=== PATIENT | female | born 1985 | race Caucasian/White ===

== ENCOUNTER 2018-05-30 20:44 | Emergency (ER) | payer MEDICAID, SELFPAY ==
[2018-05-30 20:44] VITALS: BP 125/78; PULSE 97; RESP 15; TEMP 36.6; BMI 31.1
--- NOTE | 2018-05-30 21:06 | ED.VISSUMM ---
- ER Visit Summary Date of Service: 05/30/18 Chief Complaint: [Abscess to right shoulder and swollen lymph nodes to the neck] History of Present Illness: The patient is a 32 F [presents to the emergency department complaint of a swelling to her right shoulder that she thought was just a pimple and she started to squeeze it 3 days ago. Yesterday patient had a swollen lymph node in the right side of her neck and now she has multiple. She denies any fevers. Patient presents stating she thinks she just needs an antibiotic. Patient has no medical history.] Physical Examination: [HEENT-PERRLA, EOMI. Cranial nerves II through XII grossly intact. TMs clear. Mucous membranes moist. Patient has multiple swollen lymph nodes right anterior cervical. Cardiovascular-regular rate and rhythm without murmur or ectopy Lungs-clear to auscultation, chest wall stable without crepitus or subcu emphysema Abdomen-normoactive bowel sounds, soft, nontender, no rebound or rigidity, no peritoneal signs. Back exam-over the area of the right trapezius patient has a soft tissue swelling that is got an excoriated center and small amount of purulent debris noted from it. Minimal surrounding erythema noted. Areas somewhat indurated. Extremities-intact ?4, normal range of motion, normal pulses, atraumatic] Test Results: [I recommended incision and drainage of the suspected abscess which patient agreed. Gave her the option of anesthetic versus a stab incision and she would prefer to forego with the anesthetic. Wound was cleansed with alcohol and using an 11 blade a 1 cm incision was made into the central portion of the suspected abscess and small amount of purulent debris was expressed with a small amount of blood.] Emergency Department Course and Treatment: [Patient was given a dose of clindamycin in the emergency department given that she is allergic to penicillin and sulfa sports.] Treatment Plan: [Patient will start on clindamycin and advised to follow-up with primary care physician for wound check within next 3-5 days.] Disposition: [Discharged home in stable condition] Impression: [Right shoulder abscess with incision and drainage Anterior cervical lymphadenopathy] This note was generated with Admitlyation software. It may contain incorrect words, spelling, and punctuation that were not noted in review of the chart prior to signing ED Disposition - Plan for ED Patient: Referrals: Mauricio Norman MD [Primary Care Provider] -
--- NOTE | 2018-05-30 21:09 | ED.DCSUM_ITS ---
- ER Visit Summary Date of Service: 05/30/18 Chief Complaint: [Abscess to right shoulder and swollen lymph nodes to the neck] History of Present Illness: The patient is a 32 F [presents to the emergency department complaint of a swelling to her right shoulder that she thought was just a pimple and she started to squeeze it 3 days ago. Yesterday patient had a swollen lymph node in the right side of her neck and now she has multiple. She denies any fevers. Patient presents stating she thinks she just needs an antibiotic. Patient has no medical history.] Physical Examination: [HEENT-PERRLA, EOMI. Cranial nerves II through XII grossly intact. TMs clear. Mucous membranes moist. Patient has multiple swollen lymph nodes right anterior cervical. Cardiovascular-regular rate and rhythm without murmur or ectopy Lungs-clear to auscultation, chest wall stable without crepitus or subcu emphysema Abdomen-normoactive bowel sounds, soft, nontender, no rebound or rigidity, no peritoneal signs. Back exam-over the area of the right trapezius patient has a soft tissue swelling that is got an excoriated center and small amount of purulent debris noted from it. Minimal surrounding erythema noted. Areas somewhat indurated. Extremities-intact ?4, normal range of motion, normal pulses, atraumatic] Test Results: [I recommended incision and drainage of the suspected abscess which patient agreed. Gave her the option of anesthetic versus a stab incision and she would prefer to forego with the anesthetic. Wound was cleansed with alcohol and using an 11 blade a 1 cm incision was made into the central portion of the suspected abscess and small amount of purulent debris was expressed with a small amount of blood.] Emergency Department Course and Treatment: [Patient was given a dose of clindamycin in the emergency department given that she is allergic to penicillin and sulfa sports.] Treatment Plan: [Patient will start on clindamycin and advised to follow-up with primary care physician for wound check within next 3-5 days.] Disposition: [Discharged home in stable condition] Impression: [Right shoulder abscess with incision and drainage Anterior cervical lymphadenopathy] This note was generated with SavvySyncation software. It may contain incorrect words, spelling, and punctuation that were not noted in review of the chart [place] or to signing ED Disposition - Plan for ED Patient: Referrals: Mauricio Norman MD [Primary Care Provider] -
--- NOTE | 2018-05-30 21:09 | ED.DEP ---
ED Disposition - Plan for ED Patient: Instructions: ED Abscess IandD, ED Cervical Adenitis Abx Tx Prescriptions: Clindamycin HCl [Cleocin] 300 mg PO Q6H #40 cap Referrals: Mauricio Norman MD [Primary Care Provider] - 3-5 Days
[2018-05-30] MEDS: Clindamycin HCl 150 MG Capsule 300 MG PO (21:28)
[2018-05-30 21:34] VITALS: BP 120/93; PULSE 102; RESP 16; O2SAT 100
== END 2018-05-30 21:35 | disposition home or self-care (01) ==
PROVIDERS: Emergency Provider Emergency Medicine; Family Provider Family Medicine; PCP Family Medicine
DX: L02.413 Cutaneous abscess of right upper limb (principal); R59.1 Generalized enlarged lymph nodes; Z88.0 Allergy status to penicillin; Z88.2 Allergy status to sulfonamides
CPT/HCPCS: 10060; 99282

== ENCOUNTER 2019-02-23 23:06 | Emergency (ER) | payer MEDICAID, SELFPAY ==
[2019-02-23 23:06] VITALS: BP 143/94; PULSE 66; RESP 18; TEMP 36.6; O2SAT 99; BMI 32.1
--- NOTE | 2019-02-23 23:19 | ED.VIS.GEN ---
History of Present Illness Chief Complaint: Eye Problem Informant: Patient Onset: Today Narrative: Sudden redness itching burning sensation right eye which couple hours prior to arrival. History of similar in the past. Denies any seasonal allergies. No symptoms to left eye. No visual changes or pain. Prior similar symptoms: Yes Past Medical History - Allergies and Home Meds Allergies/Adverse Reactions: Allergies amoxicillin trihydrate [From Augmentin] Allergy (Verified 02/23/19 23:11) Hives cefixime [From Suprax] Allergy (Verified 02/23/19 23:11) Hives potassium clavulanate [From Augmentin] Allergy (Verified 02/23/19 23:11) Hives Primary Care Physician: Mauricio Norman MD [Primary Care Provider] - Surgical History: noncontributory Smoking Status: Never smoker Review of Systems General: Denies: Chills, Fever, Sweats Eyes: Denies: Visual changes - left, Visual changes - right, Visual changes - bilaterally, Blurred vision - left, Blurred vision - right, Blurred Vision - bilaterally, Diplopia ENT: Denies: Rhinorrhea, Sore throat Cardiovascular: Denies: Chest pain, Palpitations Respiratory: Denies: Dyspnea, Cough, Dyspnea on exertion Gastrointestinal: Denies: Abdominal pain, Nausea, Vomiting, Diarrhea, Melena, Hematochezia Genitourinary: Denies: Dysuria, Hematuria, Frequency Musculoskeletal: Denies: Back pain, Extremity Pain Skin: Denies: Rash, Wounds Neurological: Denies: Headache, Weakness, Numbness Physical Exam Vital Signs/Narrative: Vital Signs Temp Pulse Resp BP Pulse Ox 02/23/19 23:06 98 F 66 18 143/94 H 99 Inital Vital Signs reviewed: Yes General: Well nourished, Well developed, No Acute Distress Head: Normocephalic, Atraumatic Eyes: Perrl, EOMI, - - Right eye: Mild erythema sclera chemosis laterally. No drainage or crusting. ENT: Moist mucous membranes, No rhinorrhea Neck: Supple, Nontender Cardiovascular: Regular rate, Regular rhythm, No murmurs Respiratory: No distress, CTA bilaterally, Chest nontender Abdomen: Soft, Nontender, Nondistended, Normal bowel sounds Back: Nontender, Normal Inspection Extremities: Nontender, No edema Skin: Normal color, No rash Neurological: Alert, Oriented x3, Cranial nerves II-XII grossly intact, Normal Strength, Normal Sensation Psychological: Normal affect, Normal Mood Diagnostic/Tx/Re-eval - Medical Decision Making Nontoxic, vital signs stable. Patient with conjunctivitis with chemosis. Will write for Patanol drops along with Polytrim drops to use twice a day. No visual disturbances. Follow-up as an outpatient. ED Disposition - Plan for ED Patient: Disposition: Home or Assisted Living Diagnosis: Conjunctivitis, Chemosis of right conjunctiva Instructions: CONJUNCTIVITIS, Non-Specific Prescriptions: Olopatadine HCl [Patanol] 1 drop RIGHT EYE BID #1 bottle Polymyxin B Sulf/Trimethoprim [Polytrim Eye Drops] 1 drop RIGHT EYE BID #1 bottle Referrals: Mauricio Norman MD [Primary Care Provider] - 5-7 Days
== END 2019-02-23 23:42 | disposition home or self-care (01) ==
PROVIDERS: Emergency Provider Emergency Medicine; Family Provider Family Medicine; PCP Family Medicine
DX: H10.9 Unspecified conjunctivitis (principal); H11.421 Conjunctival edema, right eye; Z79.899 Other long term (current) drug therapy; Z88.1 Allergy status to other antibiotic agents; Z88.0 Allergy status to penicillin
CPT/HCPCS: 99282

== ENCOUNTER 2019-03-30 00:47 | Emergency (ER) | payer MEDICAID, SELFPAY ==
[2019-03-30 00:49] VITALS: BP 113/87; PULSE 77; RESP 18; TEMP 36.5; O2SAT 98; BMI 32.1
--- NOTE | 2019-03-30 01:30 | ED.VISSUMM ---
- ER Visit Summary Date of Service: 03/30/19 Chief Complaint: Dental pain History of Present Illness: The patient is a 33 F who presents with right lower dental pain that began yesterday. Patient states the pain was sharp yesterday but is now dull. Patient states the pain is over the right lower jaw. Patient denies any fevers. Patient admits to some swelling of her jaw and face. Patient denies any hot or cold sensitivities. Patient states she has an appoint with her dentist next week. Physical Examination: Vital signs are stable. Patient is afebrile. Patient is in no acute distress. Oral mucosa is pink and moist. Oropharynx is clear. There is a dental carry noted on the right lower second premolar (#29). There is tenderness to percussion over this tooth. There is some mild gingival edema. There is no fluctuance or abscess formation. There is no sublingual edema. There is no erythema. Airway is patent. Neck is supple. Trachea is midline. There is no JVD. Heart was regular rate and rhythm. Lungs are clear and equal bilaterally. Emergency Department Course and Treatment: Patient is allergic to amoxicillin so the patient was given a prescription for clindamycin. Patient was given her first dose here. Patient was instructed to take Tylenol or ibuprofen as needed for pain. Patient was instructed to follow-up with her dentist and primary care physician as scheduled. Patient understood and was agreeable with the plan. All questions were answered. Disposition: Discharge home Impression: Infected dental caries This note was generated with Superhuman dictation software. It may contain incorrect words, spelling, and punctuation that were not noted in review of the chart prior to signing ED Disposition - Plan for ED Patient: Disposition: Home or Assisted Living Diagnosis: Infected dental caries Instructions: Dental Cavity Prescriptions: Clindamycin HCl [Cleocin] 300 mg PO Q6H #40 cap Prescription Printed Referrals: Mauricio Norman MD [Primary Care Provider] - Keep Marie appointment Dentist,Your [STAFF PHYSICIAN] - Keep Marie appointment
[2019-03-30] MEDS: Clindamycin HCl 150 MG Capsule 300 MG PO (01:41)
== END 2019-03-30 01:43 | disposition home or self-care (01) ==
PROVIDERS: Emergency Provider Emergency Medicine; Family Provider Family Medicine; PCP Family Medicine
DX: K04.7 Periapical abscess without sinus (principal); K02.9 Dental caries, unspecified; F90.9 Attention-deficit hyperactivity disorder, unspecified type; Z79.899 Other long term (current) drug therapy
CPT/HCPCS: 99283

== ENCOUNTER 2022-02-26 09:19 | Emergency (ER) | payer MEDICAID, SELFPAY ==
[2022-02-26 09:20] VITALS: BP 131/98; PULSE 93; RESP 18; TEMP 36.6; O2SAT 100; BMI 36.8
[2022-02-26 09:22] VITALS: BP 131/98; PULSE 93; RESP 18; TEMP 36.6; O2SAT 100
[2022-02-26 10:22] VITALS: BP 131/98; PULSE 93; RESP 18; TEMP 36.6; O2SAT 100
--- NOTE | 2022-02-26 10:38 | EDS_ITS ---
HPI History of Present Illness Chief Complaint: Dental Narrative Narrative: 36-year-old female who denies significant past medical history presents with left upper jaw pain and facial swelling since yesterday. She relates history that she began having a tooth ache in the left upper jaw last Friday, approximately 7 days ago. Yesterday she went to urgent care and was placed on amoxicillin. She woke up this morning and noticed that her left upper jaw and face was swollen. She denies any difficulty swallowing or breathing. No fevers or chills. No redness to her face. She has an appointment with her dentist on Friday. She presents to the emergency department because of the pain and swelling of her left upper jaw. PFSH PFSH Medical History no medical history Home Medications dextroamphetamine-amphetamine 30 mg tablet 1 tab PO BID 02/23/19 [History Last Taken Unknown] clindamycin HCl 300 mg capsule 300 mg PO Q6H #40 caps 03/30/19 [Rx Last Taken Unknown] multivitamin 1 ea PO DAILY 03/30/19 [History Last Taken Unknown] amoxicillin 875 mg tablet 875 mg PO BID 02/26/22 [History Last Taken Unknown] clindamycin HCl 300 mg capsule (Cleocin HCl) 300 mg PO Q6H #40 caps 02/26/22 [Rx Last Taken Unknown] ibuprofen 800 mg tablet 800 mg PO TID PRN pain #20 tabs 02/26/22 [Rx Last Taken Unknown] Allergy/AdvReac Type Severity Reaction Status Date / Time amoxicillin trihydrate Allergy Hives Verified 02/26/22 09:22 [From Augmentin] cefixime [From Suprax] Allergy Hives Verified 02/26/22 09:22 potassium clavulanate Allergy Hives Verified 02/26/22 09:22 [From Augmentin] Social History Smoking Status: Never smoker ROS ROS ED ROS Narrative Constitutional: No fever, no chills. HEENT: No sore throat. No neck pain. No loss of vision. No rhinorrhea. Left upper jaw pain with dental pain. Positive left facial swelling. No difficulty swallowing. Cardiovascular: No chest pain. No palpitations. No pedal edema. Respiratory: No cough, no shortness of breath. No difficulty breathing. Abdominal: No abdominal pain. No nausea. No vomiting. Genitourinary: No dysuria. No hematuria. Musculoskeletal: No myalgias. No arthralgias. Neurologic: No headaches. No dizziness. No lightheadedness. Skin: No rash. No change in color. Psychiatric: No depression. No anxiety. EXAM Physical Exam Narrative Exam Narrative: Afebrile. Vital signs noted. HEENT: Normocephalic. Atraumatic. PERRL, EOMI. Neck soft and supple. No point tenderness or step off. Mild swelling of left mandibular area, no erythema. No fluctuance of the gums. Noted dental carry in left upper jaw, mainly second molar. No drooling or trismus. No Refugio angina. Airway patent. Cardiovascular: Regular rate and rhythm. No murmurs, rubs, or gallops appreciated. Respiratory: No tachypnea. Lungs clear to auscultation bilaterally. Gastrointestinal: Abdomen soft, nontender, with normoactive bowel sounds. No rebound or guarding. Neurological: Awake. Alert. Nonfocal, nonlateralizing. Skin: No rash. Normal color. No pallor. Musculoskeletal: No pedal edema. Full range of motion extremities. Const Vital Signs: 02/26/22 09:20 02/26/22 09:22 02/26/22 10:22 Temperature 97.9 F 97.9 F 97.9 F Temperature Source Temporal Temporal Temporal Pulse Rate 93 93 93 Respiratory Rate 18 18 18 Blood Pressure 131/98 H 131/98 H 131/98 H Blood Pressure Mean 109 109 109 Pulse Ox 100 100 100 Oxygen Delivery Method Room Air Room Air Room Air MDM [facility] Narrative Medical decision making narrative: Patient states she does not smoke. I will change her amoxicillin to clindamycin and write her a prescription for ibuprofen. I do not see that there is a drai nable abscess anywhere. She will follow-up with her dentist on Friday. I feel she be discharged safely home with follow-up. Return instructions were reviewed. Disposition is discharged home in stable condition. Discharge Plan Triage Chief Complaint: Dental ED Provider: Richard Bearden Dx/Rx/DC Orders Clinical Impression: Dental abscess, Pain in upper jaw, Left facial swelling Instructions: ED Dental Abscess, ED Dental Abscess Facial Cellulitis Prescriptions: New clindamycin HCl [Cleocin HCl] 300 mg capsule 300 mg PO Q6H Qty: 40 0RF ibuprofen 800 mg tablet 800 mg PO TID PRN (Reason: pain) Qty: 20 0RF No Action dextroamphetamine-amphetamine 0 tablet 1 tab PO BID multivitamin 1 EACH tablet 1 ea PO DAILY clindamycin HCl 300 MG capsule 300 mg PO Q6H Qty: 40 0RF amoxicillin 875 mg tablet 875 mg PO BID Label Comments: take 1 tablet by mouth twice a day for 5 days Primary Care Provider: Mauricio Norman Referrals: Mauricio Norman MD [Primary Care Provider] - Activity Restrictions/Additional Instructions: Follow-up with your dentist as scheduled on Friday. Change your amoxicillin to clindamycin. Ibuprofen as directed for pain. Disposition Disposition: Home, Self Care
[2022-02-26 10:46] VITALS: BP 123/80; PULSE 81; RESP 71; O2SAT 94
== END 2022-02-26 10:53 | disposition home or self-care (01) ==
LOC: ED 10:51
PROVIDERS: Emergency Provider Emergency Medicine; PCP Family Medicine; Visit Provider Emergency Medicine
DX: K04.7 Periapical abscess without sinus (principal); R22.0 Localized swelling, mass and lump, head; R68.84 Jaw pain
CPT/HCPCS: 99282